=== PATIENT | female | born 1970 | race Caucasian/White ===

== ENCOUNTER → 2025-03-05 | Outpatient (CLI) | payer OTHER ==
--- NOTE | 2025-03-05 13:20 | MM ---
Reason for Exam: Screening (asymptomatic). Last mammogram was performed 8 year(s) and 11 month(s) ago. Patient History: Menarche at age 13. First Full-Term at age 22. Patient has history of breast feeding. Hormonal Contraceptives, starting at age 18 for 10 years. Risk Values: [place] 5 year model risk: 1.0%. NCI Lifetime model risk: 7.5%. Prior Study Comparison: 04/23/2011 Screening Mammogram, [facility]. 12/15/2012 Bilateral Diagnostic Mammogram, [facility]. 03/22/2016 Bilateral Screening Mammogram, [facility]. Tissue Density: The breasts are heterogeneously dense, which may obscure small masses. Findings: Analyzed By CAD. There is no suspicious group of microcalcifications or new suspicious mass in either breast. Overall Assessment: Benign, BI-RAD 2 Management: Screening Mammogram of both breasts in 1 year. . Patient should continue monthly self-breast exams. A clinical breast exam by your physician is recommended on an annual basis. This exam should not preclude additional follow-up of suspicious palpable abnormalities. Note on [place] scores and lifetime risk: 1. A [place] score greater than 3% is considered moderate risk. If this is the case, consider specialist referral to assess eligibility for a risk reducing agent. 2. If overall lifetime risk for the development of breast cancer is 20% or higher, the patient may qualify for future screening with alternating mammogram and breast MRI. [facility], , 03/05/2025 1:17 PM. Electronically signed and approved by: Josué Garibay M.D. [facility]
== END | disposition home or self-care (01) ==
LOC: RADMAMWWP 12:54
PROVIDERS: ATTEND Family Medicine
DX: Z12.31 Encounter for screening mammogram for malignant neoplasm of breast (principal); R92.333 Mammographic heterogeneous density, bilateral breasts; Z92.0 Personal history of contraception
CPT/HCPCS: 77063; 77067